=== PATIENT | female | born 1995 | race Caucasian/White ===

== ENCOUNTER 2018-03-24 21:19 | Inpatient (IN) ==
[2018-03-24] MEDS ORDERED: ONDANSETRON 4 MG/2 ML VIAL IV PRN (22:15)
[2018-03-24] MEDS ORDERED: ACETAMINOPHEN 325 MG TABLET PO PRN (22:15)
[2018-03-24] MEDS ORDERED: MEPERIDINE 50 MG/1 ML VIAL IV PRN (22:15)
[2018-03-24] MEDS ORDERED: LACTATED RINGERS 250 ML IV ONE (22:15)
[2018-03-24] MEDS ORDERED: BUTORPHANOL 1 MG/ML VIAL IV PRN (22:15)
[2018-03-24 22:38] LABS: Basophils % 0.2 % (0.0-0.8); Eosinophils % 0.4 % (0.00-10.9); Hematocrit 29.9 VOL% (35.7-47.0); Hemoglobin 10.1 GM/DL (12.0-16.0); Immature Granulocytes % 0.5 %; Immature Granulocytes Absolute 0.05 #; Lymphocytes # 2.4 10*3/uL (1.4-4.0); Lymphocytes % 23.7 % (21.3-54.2); Mean Corpuscular HGB Conc 33.8 GM/DL (32-36); Mean Corpuscular Hemoglobin 30 PG (27-34); Monocytes # 0.7 10*3/uL (0.11-0.8); Monocytes % 6.6 % (1.7-12.7); Neutrophils # 6.9 10*3/uL (1.4-7.4); Neutrophils % 68.6 % (38.7-73.9); Platelet Count 179 T/CUMM (130-400); Red Blood Count 3.36 MC/CUMM (3.8-5.5); Red Cell Distribution Width 13.1 % (9.3-17.3)
[2018-03-24] MEDS: LACTATED RINGERS 1,000 ML IV SCH (22:55)
[2018-03-25] MEDS ORDERED: FAMOTIDINE 20 MG/2 ML VIAL IV ONE (08:50)
[2018-03-25] MEDS ORDERED: ePHEDrine 50 MG/ML AMP IV PRN (08:50)
[2018-03-25] MEDS ORDERED: PROMETHAZINE 25 MG/1 ML VIAL IM PRN (08:50)
[2018-03-25] MEDS ORDERED: hydrOXYzine HCL 25 MG/1 ML VIAL IM PRN (08:50)
[2018-03-25] MEDS ORDERED: LACTATED RINGERS 1,000 ML IV ONE (08:50)
[2018-03-25] MEDS ORDERED: diphenhydrAMINE 50 MG/1 ML VIAL IV PRN (08:50)
[2018-03-25] MEDS ORDERED: CITRIC ACID/SODIUM CITRATE 30 ML UDCUP PO ONE (08:50)
[2018-03-25] MEDS ORDERED: fentaNYL 2 MCG/ROPIV 0.2% EPID 150 ML EPIDURAL SCH (09:00)
[2018-03-25] MEDS ORDERED: OXYTOCIN/LR 20 UNIT/1,000 ML BAG IV SCH (09:00)
[2018-03-25] MEDS: LACTATED RINGERS 1,000 ML IV SCH (10:05)
[2018-03-25] MEDS ORDERED: OXYTOCIN/LR 20 UNIT/1,000 ML BAG IV ONE (10:36)
[2018-03-25] MEDS ORDERED: ACETAMINOPHEN 325 MG TABLET PO PRN (10:36)
[2018-03-25] MEDS ORDERED: LANOLIN 50% CREAM 0.3 OZ TUBE TOP PRN (10:36)
[2018-03-25] MEDS ORDERED: MEASLES/MUMPS/RUBELLA VACCINE 0.5 ML VIAL SUBCUT ONE (10:36)
[2018-03-25] MEDS ORDERED: HYDROCORTISONE 2.5% RECTAL CREAM 30 GM TUBE TOP PRN (10:36)
[2018-03-25] MEDS ORDERED: oxyCODONE/ACETAMINOPHEN 5-325 MG TABLET PO PRN (10:36)
[2018-03-25] MEDS ORDERED: ONDANSETRON 4 MG/2 ML VIAL IV PRN (10:36)
[2018-03-25] MEDS ORDERED: BISACODYL 10 MG SUPP RECTAL PRN (10:36)
[2018-03-25] MEDS ORDERED: WITCH HAZEL PADS 100/JAR TOP PRN (10:36)
[2018-03-25] MEDS ORDERED: DIPH/TET/ACEL PERT BOOSTER VACCINE 0.5 ML VIAL IM ONE (10:36)
[2018-03-25] MEDS ORDERED: BENZOCAINE 20%/MENTHOL 0.5% SPRAY 56 GM CAN TOP PRN (10:36)
[2018-03-25] MEDS ORDERED: RHO(D) IMMUNE GLOBULIN 300 MCG SYRINGE IM ONE (10:36)
[2018-03-25] MEDS: IBUPROFEN 800 MG TABLET PO PRN (18:51)
[2018-03-25] MEDS: oxyCODONE/ACETAMINOPHEN 5-325 MG TABLET PO PRN (18:53)
[2018-03-25] MEDS: DOCUSATE SODIUM 100 MG CAPSULE PO SCH (21:59)
[2018-03-26 04:21] LABS: Basophils % 0.1 % (0.0-0.8); Eosinophils # 0.1 10*3/uL (0.0-0.87); Eosinophils % 0.6 % (0.00-10.9); Hematocrit 25.3 VOL% (35.7-47.0); Hemoglobin 8.6 GM/DL (12.0-16.0); Immature Granulocytes % 0.3 %; Immature Granulocytes Absolute 0.03 #; Lymphocytes # 2.4 10*3/uL (1.4-4.0); Lymphocytes % 26.9 % (21.3-54.2); Mean Corpuscular Hemoglobin 30 PG (27-34); Mean Corpuscular Volume 88.8 FL (87-102); Mean Platelet Volume 12.2 FL (9.6-12.0); Monocytes # 0.6 10*3/uL (0.11-0.8); Monocytes % 6.9 % (1.7-12.7); Neutrophils # 5.9 10*3/uL (1.4-7.4); Neutrophils % 65.2 % (38.7-73.9); Platelet Count 168 T/CUMM (130-400); Red Blood Count 2.85 MC/CUMM (3.8-5.5); Red Cell Distribution Width 13.1 % (9.3-17.3)
[2018-03-26] MEDS: DOCUSATE SODIUM 100 MG CAPSULE PO SCH ×2 (09:01→20:00)
[2018-03-26] MEDS: IBUPROFEN 800 MG TABLET PO PRN (12:59)
[2018-03-26] MEDS: oxyCODONE/ACETAMINOPHEN 5-325 MG TABLET PO PRN (20:00)
[2018-03-27 07:17] VITALS: BP 111/71
== END 2018-03-27 12:20 | disposition home or self-care (01) | DRG 560 ==
LOC: N.LDOUT 21:19 → N.LD 21:27 → N.OB 03-25 16:34
PROVIDERS: ADMIT Specialist; ATTEND Specialist